=== PATIENT | female | born 1940 | race Caucasian/White ===

== ENCOUNTER 2021-09-23 21:09 | Inpatient (IN) ==
[2021-09-23] MEDS ORDERED: LABETALOL HCL IV 5 MG/ML 20ML IV STA ×2 (21:25→22:01)
[2021-09-23] MEDS ORDERED: OPTIRAY 320 125ml IV ONE (21:28)
[2021-09-23 21:30] LABS: Basophils # (auto) 0.04 K/uL (0-0.2); Basophils % (auto) 0.4 %; Eosinophils # (auto) 0.21 K/uL (0-0.5); Eosinophils % (auto) 2.2 %; Hematocrit (blood only) 43.8 % (37-47); Hemoglobin 14.5 g/dL (12.0-16.0); Immature Granulocytes # (auto) 0.02 K/uL (0.00-0.02); Immature Granulocytes % (auto) 0.2 %; Lymphocytes # (auto) 1.66 K/uL (1.2-3.4); Lymphocytes % (auto) 17.6 %; Mean Corpuscular Hemoglobin 29.5 pg (25-34); Mean Corpuscular Hgb Conc 33.1 g/dL (32-36); Mean Platelet Volume 11.8 fL (7.4-10.4); Monocytes # (auto) 0.94 K/uL (0.11-0.59); Neutrophils # (auto) 6.54 K/uL (1.4-6.5); Neutrophils % (auto) 69.6 %; Platelet Count 201 K/uL (130-400); RDW Coefficient of Variation 14.8 % (11.5-14.5); RDW Standard Deviation 47.9 fL (36.4-46.3); Red Blood Count 4.92 M/uL (4.2-5.4); White Blood Count 9.41 K/uL (4.8-10.8)
--- NOTE | 2021-09-23 21:36 | Emergency Department Note ---
Impression & Plan Cerebrovascular accident ED Provider Note NAME: DARLENE VANG AGE: 80 SEX: F : 1940 ARRIVES VIA: Ambulance INFORMANT: Patient, patient's brother, EMS ED PROVIDER(S): Kamran Juárez DO CHIEF COMPLAINT: Aphasia HPI: The patient is a 80-year-old female who presented to the emergency department by ambulance with her brother for an evaluation of strokelike symptoms. The patient was playing bingo with some other friends around her who noted she was not acting appropriately. The patient noted that she did not feel well. The patient started having aphasia and sounded different from her baseline. 911 was called and the patient was sent to the emergency department via ALS. The patient did have a history of a stroke 6 months ago. After this she did have a carotid endarterectomy. She does take Plavix. She states she syed s been compliant with her usual outpatient medications. She denies having any headache nausea or vomiting. Her brother states it her speech is improved compared to the onset of symptoms. She does not remember receiving thrombolytics after her stroke 6 months ago which occurred in [place]. The pa cindy states that she has had no recent trauma. ROS: See above HPI for pertinent positives & negatives. A total of 10 systems reviewed and were otherwise negative. PAST MEDICAL HISTORY: See Below PAST SURGICAL HISTORY: See Below FAMILY HISTORY: See Below SOCIAL HISTORY: See Below HOME MEDICATIONS: See Below ALLERGIES: See Below VITALS: See Below PHYSICAL EXAMINATION: GENERAL: The patient is awake and alert. She is somewhat anxious appearing. EYES: The conjunctivae are clear. The pupils are round and reactive. EARS, NOSE, MOUTH AND THROAT: The nose is without any evidence of any deformity. NECK: The neck is nontender and supple. RESPIRATORY: Normal respiratory effort is noted there is no evidence of wheezing rhonchi or rales CARDIOVASCULAR: Regular rate and rhythm noted there no murmurs rubs or gallops normal S1 normal S2. GASTROINTESTINAL: The abdomen is soft. Abdomen is nontender. MUSCULOSKELETAL/EXTREMITIES: There is no evidence of gross deformity full range of motion is noted in the hips and shoulders. SKIN: There is no obvious evidence of any rash. There are no petechiae, pallor or cyanosis noted. NEUROLOGIC: Patient is awake alert and oriented x3. [employer] Operator strength is symmetric. The patient is able to hold each leg off the bed for greater than 5 seconds. Her speech is pressured. She inserts inappropriate words at times. There is a slight facial droop affecting the left corner of the mouth. There is no forehead involvement. MEDICAL DECISION MAKING: The patient is a 80-year-old female who presented to the emergency department as a stroke alert. The patient had significant aphasia and a slight facial droop. She did have a stroke 6 months ago when she lived in [place]. She has been avelino ing Plavix. She has a history of a left-sided endarterectomy. The patient slowly improved while she was in the emergency department. She was made a stroke alert and I discussed her case with the telestroke neurologist at [facility]. Given the patient's improving symptoms as well as her findings on CAT scan she did not appear to be a good candidate for TPA or other thrombolytics at this time. I discussed this with the patient and her brother and both agree that they would not want TPA or any other thrombolytic at this time even her rapidly improving symptoms. I discussed her case with the on-call [facility] hospitalist. They have agreed to evaluate the patient in the emergen cy department for further management and disposition. The patient was treated with labetalol in the emergency department because of elevated blood pressure in anticipation that she may need thrombolytics. Triage Nursing notes reviewed. Prior medical records reviewed Vital Signs: reviewed and remarkable for elevated blood pressure. Differential diagnosis: Infection, dehydration, metabolic abnormality, hypo/hyperglycemia, electrolyte disturbance, anemia, hypoxia, cardiac sources, intracerebral event, toxicologic, neurologic, as well as other pathologies. ER treatment provided: See below Diagnostics interpreted by me: ECG: EKG was obtained in the emergency department. My interpretation is sinus rhythm at 84 bpm. There is no ectopy. There is no acute ST segment abnormal ities noted. Nonspecific T wave inversions were noted in the inferior leads. No previous tracing was available. Cardiac Monitoring: An order was placed for continuous cardiac monitoring. The monitor shows a rate of 87 bpm with sinus rhythm. Laboratory studies: As stated above and show below. Imaging studies: See below Consultation(s): I discussed this patient's case with Dr. Parmar who is on-call for telestroke with [facility]. I discussed the patient's condition after the radiographic studies were reviewed by the telestroke neurologist. He does recommend the patient have an inpatient work-up for this new episode other symptoms appear to be mostly resolved and she does not appear to candidate for thrombolytics. He does recommend an EEG be obtained given the patient's description of her symptoms. I discussed the patient's condition with Dr. Stroud is on-call for the [facility] hospitalist group. He will evaluate the patient in the emergency department. ED COURSE: Procedures: none Critical Care: I have personally spent greater than 45 minutes of critical care time in the direct management of this patient. This includes bedside care, interpretation of diagnostic studies, and testing, discussion with consultants, patient, and family members, and other required patient management activities. This 45 minutes is in excess of all separately billable procedures. Past Med/Surg History Medical History CVA (cerebral vascular accident) Diabetes Hyperlipidemia Surgical History History of appendectomy History of cholecystectomy History of left-sided carotid endarterectomy History of right shoulder replacement Social History Smoking Status: Never smoker Preferred Language: American Feels Safe at Home: Yes Results & Data (ED) Vital Signs Vital Signs - 24 hr 09/23/21 21:20 09/23/21 21:25 09/23/21 21:30 Pulse Rate 87 85 88 Pulse Rate from SpO2 Sensor 84 Respiratory Rate 30 H 24 12 Respiratory Effort / Characteristics Non-Labored Respiratory Depth Normal Respiratory Pattern Tachypnea Blood Pressure 199/103 H Blood Pressure Mean 135 Blood Pressure Position Lying Pulse Oximetry 94 95 100 Oxygen Delivery Method Room Air Sepsis Recent Fever Within 48 Hours No Sepsis New/Unexplained Change in Mental Status N/A Sepsis Action Taken by Nursing No Action Required 09/23/21 21:32 09/23/21 21:35 09/23/21 21:40 Pulse Rate 86 87 88 Pulse Rate from SpO2 Sensor Respiratory Rate 20 20 20 Respiratory Effort / Characteristics Respiratory Depth Respiratory Pattern Blood Pressure 169/81 H 165/72 H 161/133 H Blood Pressure Mean 110 103 142 Blood Pressure Position Pulse Oximetry 100 94 Oxygen Delivery Method Sepsis Recent Fever Within 48 Hours Sepsis New/Unexplained Change in Mental Status Sepsis Action Taken by Nursing 09/23/21 21:45 09/23/21 21:46 09/23/21 21:48 Pulse Rate 87 Pulse Rate from SpO2 Sensor Respiratory Rate Respiratory Effort / Characteristics Respiratory Depth Respiratory Pattern Blood Pressure 168/64 H Blood Pressure Mean 98 Blood Pressure Position Pulse Oximetry Oxygen Delivery Method Room Air Sepsis Recent Fever Within 48 Hours Sepsis New/Unexplained Change in Mental Status Sepsis Action Taken by Nursing 09/23/21 21:49 09/23/21 21:50 09/23/21 21:51 Pulse Rate 92 H 97 H 92 H Pulse Rate from SpO2 Sensor 93 H 93 H Respiratory Rate 26 H 28 H 18 Respiratory Effort / Characteristics Respiratory Depth Respiratory Pattern Blood Pressure 178/129 H Blood Pressure Mean 145 Blood Pressure Position Pulse Oximetry 88 L 100 100 Oxygen Delivery Method Sepsis Recent Fever Within 48 Hours Sepsis New/Unexplained Change in Mental Status Sepsis Action Taken by Nursing 09/23/21 21:57 09/23/21 22:00 09/23/21 22:01 Pulse Rate 90 93 H 90 Pulse Rate from SpO2 Sensor Respiratory Rate 26 H 16 23 Respiratory Effort / Characteristics Respiratory Depth Respiratory Pattern Blood Pressure 191/75 H 169/81 H Blood Pressure Mean 113 110 Blood Pressure Position Pulse Oximetry 98 100 100 Oxygen Delivery Method Sepsis Recent Fever Within 48 Hours Sepsis New/Unexplained Change in Mental Status Sepsis Action Taken by Nursing 09/23/21 22:05 Pulse Rate 90 Pulse Rate from SpO2 Sensor Respiratory Rate 22 Respiratory Effort / Characteristics Respiratory Depth Respiratory Pattern Blood Pressure 189/61 H Blood Pressure Mean 103 Blood Pressure Position Pulse Oximetry 100 Oxygen Delivery Method Sepsis Recent Fever Within 48 Hours Sepsis New/Unexplained Change in Mental Status Sepsis Action Taken by Longterm Medications Current Medication List: was personally reviewed by me Laboratory Data Attestation: I reviewed the patient's lab results. Result diagrams: 09/23/21 21:20 09/23/21 21:20 Lab Results 09/23/21 09/23/21 09/23/21 Range/Units 21:20 21:20 21:20 WBC 9.41 (4.8-10.8) K/uL RBC 4.92 (4.2-5.4) M/uL Hgb 14.5 (12.0-16.0) g/dL Hct 43.8 (37-47) % MCV 89.0 (80-100) fL MCH 29.5 (25-34) pg MCHC 33.1 (32-36) g/dL RDW Std Deviation 47.9 H (36.4-46.3) fL RDW Coeff of [place] 14.8 H (11.5-14.5) % Plt Count 201 (130-400) K/uL MPV 11.8 H (7.4-10.4) fL Immature Gran % (Auto) 0.2 % Neut % (Auto) 69.6 % Lymph % (Auto) 17.6 % [place] % (Auto) 10.0 % Eos % (Auto) 2.2 % Baso % (Auto) 0.4 % Neut # (Auto) 6.54 H (1.4-6.5) K/uL Lymph # (Auto) 1.66 (1.2-3.4) K/uL [place] # (Auto) 0.94 H (0.11-0.59) K/uL Eos # (Auto) 0.21 (0-0.5) K/uL Baso # (Auto) 0.04 (0-0.2) K/uL Immature Gran # (Auto) 0.02 (0.00-0.02) K/uL PT Cancelled INR Cancelled APTT Cancelled PTT Ratio Cancelled Sodium 138 (136-145) mmol/L Potassium 4.1 (3.5-5.1) mmol/L Chloride 103 (98-107) mmol/L Carbon Dioxide 28 (21-32) mmol/L Anion Gap 7 (3-11) BUN 26 H (6-23) mg/dl Creatinine 1.09 (0.6-1.2) mg/dl Est Cr Clr Drug Dosing 45.1 ml/min Est GFR ( Amer) 55.9 ml/min Est GFR (Non-Af Amer) 48.2 ml/min BUN/Creatinine Ratio 23.9 H (10-20) Glucose 146 H (70-99(Fasting)) mg/dl POC Glucose (70-99) mg/dl Calcium 9.8 (8.5-10.1) mg/dl Magnesium 1.7 (1.7-2.4) mg/dl Total Bilirubin 0.7 (0.2-1.0) mg/dl AST 23 (13-39) U/L ALT 24 (7-52) U/L Alkaline Phosphatase 64 (34-104) U/L Troponin I < 0.03 (0-0.04) ng/ml Total Protein 7.2 (6.0-8.3) gm/dl Albumin 4.1 (3.4-5.0) gm/dl Globulin 3.1 (2.5-4.0) gm/dl Albumin/Globulin Ratio 1.3 (0.9-2) SARS-CoV-2, RNA, NAAT (NEGATIVE) 09/23/21 09/23/21 09/23/21 Range/Units 21:22 21:30 21:45 WBC (4.8-10.8) K/uL RBC (4.2-5.4) M/uL Hgb (12.0-16.0) g/dL Hct (37-47) % MCV (80-100) fL MCH (25-34) pg MCHC (32-36) g/dL RDW Std Deviation (36.4-46.3) fL RDW Coeff of [place] (11.5-14.5) % Plt Count (130-400) K/uL MPV (7.4-10.4) fL Immature Gran % (Auto) % Neut % (Auto) % Lymph % (Auto) % [place] % (Auto) % Eos % (Auto) % Baso % (Auto) % Neut # (Auto) (1.4-6.5) K/uL Lymph # (Auto) (1.2-3.4) K/uL [place] # (Auto) (0.11-0.59) K/uL Eos # (Auto) (0-0.5) K/uL Baso # (Auto) (0-0.2) K/uL Immature Gran # (Auto) (0.00-0.02) K/uL PT 11.2 INR 1.1 APTT 27.3 PTT Ratio 1.0 Sodium (136-145) mmol/L Potassium (3.5-5.1) mmol/L Chloride (98-107) mmol/L Carbon Dioxide (21-32) mmol/L Anion Gap (3-11) BUN (6-23) mg/dl Creatinine (0.6-1.2) mg/dl Est Cr Clr Drug Dosing ml/min Est GFR ( Amer) ml/min Est GFR (Non-Af Amer) ml/min BUN/Creatinine Ratio (10-20) Glucose (70-99(Fasting)) mg/dl POC Glucose 153 H (70-99) mg/dl Calcium (8.5-10.1) mg/dl Magnesium (1.7-2.4) mg/dl Total Bilirubin (0.2-1.0) mg/dl AST (13-39) U/L ALT (7-52) U/L Alkaline Phosphatase (34-104) U/L Troponin I (0-0.04) ng/ml Total Protein (6.0-8.3) gm/dl Albumin (3.4-5.0) gm/dl Globulin (2.5-4.0) gm/dl Albumin/Globulin Ratio (0.9-2) SARS-CoV-2, RNA, NAAT NEGATIVE (NEGATIVE) Administered Medications Discontinued Medications Ioversol (Optiray 320 125ml) 120 ml IV ONCE ONE Stop: 09/23/21 21:29 Last Admin: 09/23/21 21:29 Dose: 120 ml Documented by: [id number] Labetalol HCl (Labetalol Hcl Iv 5 Mg/Ml 20ml) 10 mg IV NOW STA Stop: 09/23/21 21:26 Last Admin: 09/23/21 21:30 Dose: 10 mg Documented by: [id number] Cosigned by: [id number] Labetalol HCl (Labetalol Hcl Iv 5 Mg/Ml 20ml) 10 mg IV NOW STA Stop: 09/23/21 22:02 Last Admin: 09/23/21 22:03 Dose: 10 mg Documented by: [id number] Cosigned by: [id number] Imaging Data Attestation: I personally reviewed and interpreted this imaging study as follows: My Impression: 1 view chest x-ray was obtained in the emergency department. My interpretation is cardiomegaly with slight pulmonary vascular congestion. No acute disease was noted. There was no free air. Radiologist's Impression: Patient: DARLENE VANG (Female) : 42 Status: ER Date: 09/23/21 21:36 Room #: History: CODE STROKE; PT. SUDDEN CONFUSION AND SLURRED SPEECH OPTI 320 CC SCAN - DG NOTES - Slices: 568 Priors: Tech: KishoreCecin @ [phone] Exams: CTA HEAD Contrast: IV Amt: OPTI 320 120 CC Accession Numbers: [id number] Referring Physician: REFERRED SELF Preliminary Findings Only See Final Report For Complete Findings CTA HEAD: There are regions of parenchymal hypoattenuation and loss of su-white matter differentiation in the bilateral parieto-occipital regions, left larger than right, concerning for recent cortical infarcts. Differential consideration includes acute hypertensive encephalopathy. Intracranial circulation appears patent. No central large vessel occlusion identified. No aneurysm. Radiologist: Marylou Braun M.D. Study ready at 21:38 and initial results transmitted at 21:52 Communications: Clear Time Type Notes Call Doctor Stroke Patient: DARLENE VANG (Female) : 42 Status: ER Date: 09/23/21 21:37 Room #: History: CODE STROKE; PT. SUDDEN CONFUSION AND SLURRED SPEECH OPTI 320 CC SCAN - DG NOTES - Slices: [phone] Priors: Tech: Jacqueline Novak @ [phone] Exams: CTA NECK Contrast: IV Amt: OPTI 320 120 CC Accession Numbers: [id number] Referring Physician: REFERRED SELF Preliminary Findings Only See Final Report For Complete Findings CTA NECK: Calcific plaque proximal right ICA without stenosis. Left ICA adequately patent. Both common carotid arteries are adequately patent. Both vertebral arteries adequately patent. Slightly sub-optimal evaluation of right vertebral artery origin. Radiologist: Marylou Braun M.D. Study ready at 21:48 and initial results transmitted at 21:51 Patient: DARLENE VANG (Female) : 42 Status: ER Date: 09/23/21 21:49 Room #: History: CODE STROKE; PT. SUDDEN CONFUSION AND SLURRED SPEECH SCAN - NOTES - Slices: 134 Priors: Tech: Jacqueline Novak @ [phone] Exams: CT HEAD Contrast: Accession Numbers: [id number] Referring Physician: REFERRED SELF Preliminary Findings Only See Final Report For Complete Findings CT HEAD: Subacute to chronic cortical infarct in the left parieto-occipital region. Su-white matter differentiation appears otherwise maintained. No CT evidence of acute territorial infarct. No acute intracranial hemorrhage. Involutional and chronic small vessel ischemic changes. No skull fracture. Age-indeterminate bilateral nasal bone fractures. Sinuses and mastoid air cells are clear. Radiologist: Marylou Braun M.D. Study ready at 21:49 and initial results transmitted at 21:57 Communications: Clear Time Type Notes Call Doctor Stroke Discharge Plan Visit Data Chief Complaint: Stroke Alert ED Provider: Kamran Juárez Discharge Problem: Cerebrovascular accident Patient Disposition: Being Evaluated by Hospitalist Forms Stand Alone Forms: [facility] Referrals Referrals: Twila Renteria MD [Primary Care Provider] -
[2021-09-23 21:48] LABS: INR 1.1 (0.9-1.1); Partial Thromboplastin Time 27.3 Seconds (21.0-31.0); Prothrombin Time 11.2 Seconds (9.0-12.0)
[2021-09-23 21:51] LABS: Alanine Aminotransferase 24 U/L (7-52); Albumin Globulin Ratio 1.3 (0.9-2); Albumin Level 4.1 gm/dl (3.4-5.0); Alkaline Phosphatase 64 U/L (34-104); Anion Gap 7 (3-11); Aspartate Aminotransferase 23 U/L (13-39); BUN Creatinine Ratio 23.9 (10-20); Bilirubin,Total 0.7 mg/dl (0.2-1.0); Blood Urea Nitrogen 26 mg/dl (6-23); Calcium 9.8 mg/dl (8.5-10.1); Carbon Dioxide 28 mmol/L (21-32); Chloride 103 mmol/L (98-107); Creatinine Clr Calc Pharmacy 45.1 ml/min; Est GFR (African American) 55.9 ml/min; Est GFR (Non-African American) 48.2 ml/min; Globulin 3.1 gm/dl (2.5-4.0); Glucose 146 mg/dl (70-99(Fasting)); Magnesium 1.7 mg/dl (1.7-2.4); Potassium 4.1 mmol/L (3.5-5.1); Sodium 138 mmol/L (136-145); Total Protein 7.2 gm/dl (6.0-8.3)
[2021-09-23 22:19] LABS: Troponin I < 0.03 ng/ml (0-0.04)
--- NOTE | 2021-09-23 23:36 | History & Physical Report ---
Date of Service September 23, 2021 Assessment & Plan (1) Cerebrovascular accident: Plan: Recurrent CVA Possible embolic mechanism given history of PAF, patient currently NSR TPA not administered at the ER secondary to improving neurologic symptoms as per [facility] stroke specialist. PVD status post surgery hypertension, elevated secondary to CVA hyperlipidemia on statin Rx DM insulin requiring, well-controlled as of recent hemoglobin A1c of 6.17 August 2021 Medical telemetry Neurochecks Continue antiplatelet and statin Rx for secondary stroke prevention. Patient may need anticoagulation if recurrent A. fib noted during confinement. MRI brain, TTE for stroke work-up Neurology consult Re: Recurrent CVA Permissive hypertension for first 24 hours of event Update lipid profile Basal insulin, ISS BG goal 1 10-1 40, carb count coverage once patient eating PT OT eval DVT prophylaxis per Lovenox subcu Full code Patient requests for her niece to be updated of progress and plan of care Ms. Mariposa Jean, contact #[phone]. Text document was generated using [employer] voice recognition software. It may contain grammatical or spelling errors. Kindly contact undersigned for clarification of any documentation item in question. History of Present Illness Chief Complaint: Stroke Primary Care Provider: Twila Renteria MD History obtained from patient and records. History somewhat limited by patient's aphasia. Medical history significant for CVA, PVD status post surgery, hypertension, PAF, hyperlipidemia, DM insulin requiring. Patient confined at [facility] in [place], [place] January 2021 for altered mental status and aphasia. MRI brain showed acute infarction involving left parietal lobe with regions of petechial hemorrhage and moderate atrophy with chronic microvascular ischemic changes. 50 to 69% stenosis noted on proximal left ICA. Elective left carotid endarterectomy recommended by vascular surgery. Paroxysmal A. fib noted during confinement. Thromboembolic ischemic event highly suspected as per documentation. Patient discharged on dual antiplatelet therapy and Lipitor. Patient eventually underwent left carotid endarterectomy at [facility] February 2021. Patient was playing bingo with her friends few hours ago when she started not feeling well. Patient noted to be aphasic and sounding differently by family. Patient denies headache or weakness symptoms Compliant with home medications. Stroke alert called upon arrival at the ER. TPA not recommended with note of improving symptoms as per conversation between ER provider and [facility] stroke specialist. SBP noted to be 190s at the highest at the ER. IV labetalol administered at the ER. 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 Allergies Allergy/AdvReac Type Severity Reaction Status Date / Time No Known Allergies Allergy Unverified 09/23/21 22:41 Home Medications Medication Instructions Recorded Confirmed Type aspirin 81 mg tablet,delayed 81 mg PO DAILY 09/23/21 09/23/21 History release (Aspirin Low Dose) atorvastatin 80 mg tablet 80 mg PO DAILY 09/23/21 09/23/21 History cholecalciferol (vitamin D3) 25 25 mcg PO DAILY 09/23/21 09/23/21 History mcg (1,000 unit) tablet (Vitamin D3) clopidogrel 75 mg tablet 75 mg PO DAILY 09/23/21 09/23/21 History dulaglutide 0.75 mg/0.5 mL 0.75 mg SUBCUT WK 09/23/21 09/23/21 History subcutaneous pen injector (Trulicity) insulin aspart U-100 100 unit/mL 0 unit SUBCUT UD 09/23/21 09/23/21 History (3 mL) subcutaneous pen (Novolog Flexpen U-100 Insulin aspart) losartan 50 mg tablet 50 mg PO DAILY 09/23/21 09/23/21 History metformin 500 mg tablet,extended 500 mg PO DAILY 09/23/21 09/23/21 History release 24 hr metoprolol tartrate 50 mg tablet 50 mg PO BID 09/23/21 09/23/21 History Past Med/Surg History Medical History CVA (cerebral vascular accident) Diabetes Hyperlipidemia Surgical History History of appendectomy History of cholecystectomy History of left-sided carotid endarterectomy History of right shoulder replacement Social History Smoking Status: Never smoker Hx Alcohol Use: No Hx Substance Use: No Preferred Language: Azeri Communication Ability: Impaired Wet Mix Operator Required: No Beliefs That Will Affect Care: Alevism Current Living Situation: Alone Current Living Situation Comment: own Home Feels Safe at Home: Yes Safety Concerns: Feels Safe At This Time Assistive Devices: Denture - Upper and Glasses Review of Systems Review of Systems: Somewhat limited due to aphasia Physical Exam Physical Exam: GENERAL: Comfortable, pleasant, obese, aphasic, dysarthric, no respiratory distress SKIN: Normal color, warm HEENT: [place] palpebral conjunctivae, no ptosis, dry buccal mucosa NECK : Supple, short neck, no tenderness CHEST : CTA, no tenderness HEART : RRR, no obvious murmurs ABDOMEN: Some distention, nontender EXTREMITIES : No LE swelling/tenderness, no other conspicuous deformities noted NEUROLOGIC : Coherent, no facial asymmetry, aphasic, dysarthric, gait and stance not assessed Results & Data Results & Data ([facility]) Vital Signs (Past 12 Hours) Vital Signs Pulse Resp BP Pulse Ox 09/23/21 22:40 85 17 98 09/23/21 22:33 86 18 151/79 H 99 09/23/21 22:30 87 31 H 100 09/23/21 22:25 87 26 H 160/102 H 09/23/21 22:20 87 18 161/73 H 98 09/23/21 22:15 91 H 21 179/78 H 97 09/23/21 22:11 90 17 165/89 H 99 09/23/21 22:10 91 H 23 98 09/23/21 22:05 90 22 189/61 H 100 09/23/21 22:01 90 23 169/81 H 100 09/23/21 22:00 93 H 16 100 09/23/21 21:57 90 26 H 191/75 H 98 09/23/21 21:51 92 H 18 178/129 H 100 09/23/21 21:50 97 H 28 H 100 09/23/21 21:49 92 H 26 H 88 L 09/23/21 21:46 168/64 H 09/23/21 21:45 87 09/23/21 21:40 88 20 161/133 H 09/23/21 21:35 87 20 165/72 H 94 09/23/21 21:32 86 20 169/81 H 100 09/23/21 21:30 88 12 100 09/23/21 21:25 85 24 95 09/23/21 21:20 87 30 H 199/103 H 94 Laboratory Results Laboratory Results WBC 9.41 K/uL (4.8-10.8) 09/23/21 21:20 RBC 4.92 M/uL (4.2-5.4) 09/23/21 21:20 Hgb 14.5 g/dL (12.0-16.0) 09/23/21 21:20 Hct 43.8 % (37-47) 09/23/21 21:20 MCV 89.0 fL (80-100) 09/23/21 21:20 MCH 29.5 pg (25-34) 09/23/21 21: MCHC 33.1 g/dL (32-36) 09/23/21 21:20 RDW Std Deviation 47.9 fL (36.4-46.3) H 09/23/21: RDW Coeff of [place] 14.8 % (11.5-14.5) H 09/23/21 21: Plt Count 201 K/uL (130-400) 09/23/21 21:20 MPV 11.8 fL (7.4-10.4) H 09/23/21 21:20 Immature Gran % (Auto) 0.2 % 09/23/21 21:20 Neut % (Auto) 69.6 % 09/23/21 21:20 Lymph % (Auto) 17.6 % 09/23/21 21:20 [place] % (Auto) 10.0 % 09/23/21 21:20 Eos % (Auto) 2.2 % 09/23/21 21:20 Baso % (Auto) 0.4 % 09/23/21 21:20 Neut # (Auto) 6.54 K/uL (1.4-6.5) H 09/23/21 21:20 Lymph # (Auto) 1.66 K/uL (1.2-3.4) 09/23/21 21:20 [place] # (Auto) 0.94 K/uL (0.11-0.59) H 09/23/21 21:20 Eos # (Auto) 0.21 K/uL (0-0.5) 09/23/21 21:20 Baso # (Auto) 0.04 K/uL (0-0.2) 09/23/21 21:20 Immature Gran # (Auto) 0.02 K/uL (0.00-0.02) 09/23/21 21:20 PT 11.2 Seconds (9.0-12.0) 09/23/21 21:30 INR 1.1 (0.9-1.1) 09/23/21 21:30 APTT 27.3 Seconds (21.0-31.0) 09/23/21 21:30 PTT Ratio 1.0 09/23/21 21:30 Sodium 138 mmol/L (136-145) 09/23/21 21:20 Potassium 4.1 mmol/L (3.5-5.1) 09/23/21 21:20 Chloride 103 mmol/L (98-107) 09/23/21 21:20 Carbon Dioxide 28 mmol/L (21-32) 09/23/21 21:20 Anion Gap 7 (3-11) 09/23/21 21:20 BUN 26 mg/dl (6-23) H 09/23/21 21:20 Creatinine 1.09 mg/dl (0.6-1.2) 09/23/21 21:20 Est Cr Clr Drug Dosing 45.1 ml/min 09/23/21 21:20 Est GFR ( Amer) 55.9 ml/min 09/23/21 21:20 Est GFR (Non-Af Amer) 48.2 ml/min 09/23/21 21:20 BUN/Creatinine Ratio 23.9 (10-20) H 09/23/21 21:20 Glucose 146 mg/dl (70-99(Fasting)) H 09/23/21 21:20 POC Glucose 153 mg/dl (70-99) H 09/23/21:22 Calcium 9.8 mg/dl (8.5-10.1) 09/23/21 21: Magnesium 1.7 mg/dl (1.7-2.4) 09/23/21 21:20 Total Bilirubin 0.7 mg/dl (0.2-1.0) 09/23/21 21:20 AST 23 U/L (13-39) 09/23/21 21:20 ALT 24 U/L (7-52) 09/23/21 21:20 Alkaline Phosphatase 64 U/L (34-104) 09/23/21 21:20 Troponin I < 0.03 ng/ml (0-0.04) 09/23/21 21:20 Total Protein 7.2 gm/dl (6.0-8.3) 09/23/21 21:20 Albumin 4.1 gm/dl (3.4-5.0) 09/23/21 21:20 Globulin 3.1 gm/dl (2.5-4.0) 09/23/21 21:20 Albumin/Globulin Ratio 1.3 (0.9-2) 09/23/21 21:20 SARS-CoV-2, RNA, NAAT NEGATIVE (NEGATIVE) 09/23/21 21:[address] head initial read: Subacute to chronic cortical infarct in the left parieto-occipital region. Su- white matter differentiation appears otherwise maintained. No CT evidence of acute territorial infarct. No acute intracranial hemorrhage. Involutional and chronic small vessel ischemic changes. No skull fracture. Age-indeterminate bilateral nasal bone fractures. Sinuses and mastoid air cells are clear CT angio head initial read: There are regions of parenchymal hypoattenuation and loss of su-white matter differentiation in the bilateral parieto-occipital regions, left larger than right, concerning for recent cortical infarcts. Differential consideration includes acute hypertensive encephalopathy. Intracranial circulation appears patent. No central large vessel occlusion identified. No aneurysm. CT angio neck initial read: Calcific plaque proximal right ICAwithout stenosis. Left ICAadequatelypatent. Both common carotid arteries are adequatelypatent. Both vertebral arteries adequatelypatent. Slightlysub-optimal evaluation of right vertebral artery origin. Chest x-ray as per my interpretation cardiomegaly EKG as per my interpretation : Rate 85, NSR, normal axis, 1 AVB, T wave abnormalities inferior and anterolateral leads (1) Cerebrovascular accident CVA mechanism: unspecified Qualified Code(s): I63.9 - Cerebral infarction, unspecified
[2021-09-24] MEDS: SODIUM CHLORIDE 0.9% 1000ML 1,000 ML IV SCH (00:10)
[2021-09-24] MEDS ORDERED: GLUCAGON FOR INJ 1 MG VIAL SQ PRN (01:04)
[2021-09-24] MEDS ORDERED: PHARMACIST DISCHARGE MED REC CONSULT PRN (01:04)
[2021-09-24] MEDS ORDERED: ACETAMINOPHEN 325 MG TAB PO PRN (01:04)
[2021-09-24] MEDS ORDERED: DEXTROSE 50% 50 ML SYRINGE IV PRN (01:04)
[2021-09-24] MEDS ORDERED: CARBOHYDRATES FOR HYPOGLYCEMIA PO PRN (01:04)
[2021-09-24] MEDS ORDERED: GLUCOSE 40% GEL 15 GM TUBE PO PRN (01:04)
[2021-09-24] MEDS ORDERED: GLUCOSE 10 TABS/TUBE PO PRN (01:04)
[2021-09-24] MEDS: INSULIN ASPART PER UNIT SC SCH ×5 (02:54→20:55)
[2021-09-24] MEDS ORDERED: LORazepam 2 MG/1 ML VIAL IV PRN (06:54)
--- NOTE | 2021-09-24 07:13 | CT Scan Report ---
CT head/brain wo con CLINICAL HISTORY: Stroke Like Symptoms . Sudden onset of confusion and slurred speech COMPARISON STUDY: No previous studies for comparison. CT DOSE: 1190.88 mGy.cm TECHNIQUE: Standard CT of the Brain was performed without IV contrast. A dose lowering technique was utilized adhering to the principles of ALARA. FINDINGS: Extraaxial space: There is no evidence for subdural hematoma. There are no extra-axial fluid collecti ons. Ventricles and cisterns: The ventricles are mildly dilated bilaterally. There is no evidence for midl ine shift or mass effect. Parenchyma: There is no subarachnoid or intraparenchymal hemorrhage. There is no evidence for an acut e infarct or cerebral edema. There is evidence for old left posterior parietal infarct with encephalo malacia present. There is mild cerebral cortical atrophy and decreased attenuation in the periventric ular white matter representing remote small vessel disease. There are no gross mass lesions. Osseous structures: There is no evidence for an acute fracture. The visualized paranasal sinuses are clear. The mastoid air cells are clear bilaterally. Soft tissues: There is no evidence for focal soft tissue swelling. IMPRESSION: 1. No acute intracerebral pathology. 2. Evidence for old left posterior parietal infarct with encephalomalacia. 3. Cerebral cortical atrophy and remote small vessel disease. ACT 112: Negative or not required by law. Electronically signed by: Chris Villavicencio M.D. 09/24/2021 7:12 AM
--- NOTE | 2021-09-24 07:30 | CT Scan Report ---
CT angio head w con CLINICAL HISTORY: Stroke Like Symptoms . Sudden onset of confusion and slurred speech COMPARISON STUDY: CT brain from 09/23/2021. CT DOSE: TECHNIQUE: CT Angio of the brain was performed.followed by image post processing with coronal, and s agittal MIP reformats. Contrast Volume: Optiray 320, 120 ml FINDINGS: Vascular findings: There is normal enhancement within the internal carotid arteries bilaterally. Ther e is mild atherosclerotic calcification of the intracranial portions of the internal carotid arteries bilaterally. There is normal enhancement noted within the anterior, middle and posterior cerebral ar teries. However, there is atherosclerotic narrowing of the right A1 and A2 segments of the anterior cerebral artery. There is no evidence for stenosis. Nonvascular findings: There is again decreased attenuation within the posterior left parietal lobe ch aracteristic of an old infarct. There is no evidence for an acute infarct or cerebral edema. IMPRESSION: 1. No evidence for focal stenosis. 2. Atherosclerotic calcification is present. 3. Old left posterior parietal infarct is again seen. ACT 112: Negative or not required by law. Electronically signed by: Chris Villavicencio M.D. 09/24/2021 7:29 AM
--- NOTE | 2021-09-24 07:34 | CT Scan Report ---
CT angio neck with con CLINICAL HISTORY: Stroke Like Symptoms . Sudden onset of confusion and slurred speech COMPARISON STUDY: No previous studies for comparison. CT DOSE: TECHNIQUE: CT Angio of the neck was performed.followed by image post processing with coronal, and sa gittal MIP reformats.. Stenosis assessment by NASCET criteria. Contrast Volume: Optiray 320, 120 ml FINDINGS: Vascular findings: Right common carotid artery: Patent without significant stenosis. There is mild atherosclerotic calci fication at the carotid bulb. Right internal carotid artery: Patent without significant stenosis. Right vertebral artery: Patent without significant stenosis. Left common carotid artery: Patent without significant stenosis. Left internal carotid artery: Patent without significant stenosis. Left vertebral artery: Patent without significant stenosis. Nonvascular findings: The parotid and submandibular salivary glands appear normal. There is no enlarged cervical adenopathy noted. The airway appears patent. The thyroid gland appears within normal limits. The lung apices ap pear within normal limits. Impression: Essentially negative CT angiogram of the neck with contrast. ACT 112: Negative or not required by law. Electronically signed by: Chris Villavicencio M.D. 09/24/2021 7:32 AM
[2021-09-24 07:54] LABS: Basophils # (auto) 0.03 K/uL (0-0.2); Basophils % (auto) 0.3 %; Eosinophils # (auto) 0.14 K/uL (0-0.5); Eosinophils % (auto) 1.6 %; Hematocrit (blood only) 38.4 % (37-47); Hemoglobin 12.8 g/dL (12.0-16.0); Immature Granulocytes # (auto) 0.01 K/uL (0.00-0.02); Immature Granulocytes % (auto) 0.1 %; Lymphocytes # (auto) 1.38 K/uL (1.2-3.4); Lymphocytes % (auto) 15.8 %; Mean Corpuscular Hemoglobin 29.2 pg (25-34); Mean Corpuscular Hgb Conc 33.3 g/dL (32-36); Mean Corpuscular Volume 87.7 fL (80-100); Mean Platelet Volume 11.8 fL (7.4-10.4); Monocytes % (auto) 11.5 %; Neutrophils # (auto) 6.16 K/uL (1.4-6.5); Neutrophils % (auto) 70.7 %; Platelet Count 183 K/uL (130-400); RDW Coefficient of Variation 14.8 % (11.5-14.5); RDW Standard Deviation 47.7 fL (36.4-46.3); Red Blood Count 4.38 M/uL (4.2-5.4); White Blood Count 8.72 K/uL (4.8-10.8)
[2021-09-24 08:02] LABS: BUN Creatinine Ratio 23.8 (10-20); Calcium 8.3 mg/dl (8.5-10.1); Chol HDL Ratio 2.6 (0-5); Est GFR (African American) 61.3 ml/min; Est GFR (Non-African American) 52.9 ml/min; Potassium 4.1 mmol/L (3.5-5.1)
--- NOTE | 2021-09-24 08:04 | XRay Report ---
XR chest 1V portable CLINICAL HISTORY: Stroke Like Symptoms TECHNIQUE: Single frontal radiograph of the chest was obtained. Comparison: None available at the time of this dictation. FINDINGS: No lines and tubes are seen. Cardiomegaly is noted. The lungs are clear. No evidence of pleural effus ion or pneumothorax. Right reverse shoulder arthroplasty is seen. IMPRESSION: No acute chest disease. ACT 112: Negative or not required by law. Electronically signed by: Jairon Banks M.D. 09/24/2021 8:02 AM
[2021-09-24] MEDS: ASPIRIN 81 MG ECTAB PO SCH (08:40)
[2021-09-24] MEDS: ATORVASTATIN 40 MG TAB PO SCH (08:42)
[2021-09-24] MEDS: CLOPIDOGREL BISULFATE 75 MG TAB PO SCH (08:45)
[2021-09-24] MEDS: METOPROLOL TARTRATE 25 MG TAB PO SCH ×2 (08:46→20:55)
[2021-09-24] MEDS: ENOXAPARIN INJ 40 MG/0.4 ML SYR SQ SCH (08:47)
[2021-09-24] MEDS: INSULIN GLARGINE SOLOSTAR 100 UNITS/ML 3 ML PEN SC SCH (09:04)
--- NOTE | 2021-09-24 11:07 | Neurology Consultation ---
Date of Consultation September 24, 2021 Assessment & Plan (1) Cerebrovascular accident: 1. MRI brain - r/o stroke can not tolerate repeat CT head now 2. CTA head and neck - no acute findings 3. TTE - if not already done 4. PT/OT speech for discharge needs 5. continue aspirin 81 mg and plavix 75 mg 6. optimize HTN HLD DM LDL <70 7. UA r/o UTI neurology follow 4-6 weeks and EEG and ZIO as out patient Supervising Physician Co-Signing Physician Notes Patient was seen and examined this afternoon. Niece at bedside. A 80 yo woman with history of PAF not on anticoagulation, left carotid stenosis s/p CEA on ASA and Plavix with prior history of left MCA ischemic stroke with residual aphasia / dysarthria. Admitted wiht episode yesterday of bilateral upper extremity shaking, vision changes, and worsening aphasia / speech difficulty. Symptoms improved. On examine has right finger to nose ataxia, pupils symmetric and reactive, mild to moderate global aphasia with moderate dysarthria. Concern for embolic stroke as discussed with patient and niece at bedside. Recommend repeat CT head non contrast as did not tolerate MRI brain. Low suspicion for seizure. Could consider EEG as outpatient. Discussed ELiquis and Plavix for secondary stroke prevention given history of Afib. Patient and niece which to discuss further. Neurology will continue to follow. INTERVAL UPdate: Repeat CT head reviewed. Right cerbellar evolving stroke. Continue Neuro checks. Continue telemetry. Agree with cardiology consult given prior history of PAF from outside associate team physician. I would lean towards starting Eliquis and stopping ASA. continue PLavix. Will continue to follow. Will arrange repeat CT head in the morning. History of Present Illness Reason for Consultation: CVA Requesting Physician: Leah Hemphill MD Attending Physician: Kanchan Lynn MD History of Present Illness Lyndsey is a 80 year old female who presented to [facility] ED 09/23/21 by ambulance with her brother for an evaluation of strokelike symptoms. She was playing bingo with some other friends around her who noted she was not acting appropriately. She did not feel well and started having aphasia and sounded different from her baseline. 911 was called. She did have a stroke 6 months ago. She had a carotid endarterectomy and now takes Plavix. Her speech improved in the ED She does not remember receiving thrombolytics after her stroke 6 months ago which occurred in [place].She has a PMH- DM, HLD, HTN, left retinal hemorrhage, obesity. She describes a shaking of both hands which lasted seconds which she put her syed nd on her face to stop them. she never lost conscience. She walked back to her apartment and EMS was called. denies CP, SOB, abdominal pain Allergies Allergy/AdvReac Type Severity Reaction Status Date / Time No Known Allergies Allergy Unverified 09/23/21 22:41 Home Medications Medication Instructions Recorded Confirmed Type aspirin 81 mg tablet,delayed 81 mg PO DAILY 09/23/21 09/23/21 History release (Aspirin Low Dose) atorvastatin 80 mg tablet 80 mg PO DAILY 09/23/21 09/23/21 History cholecalciferol (vitamin D3) 25 25 mcg PO DAILY 09/23/21 09/23/21 History mcg (1,000 unit) tablet (Vitamin D3) clopidogrel 75 mg tablet 75 mg PO DAILY 09/23/21 09/23/21 History dulaglutide 0.75 mg/0.5 mL 0.75 mg SUBCUT WK 09/23/21 09/23/21 History subcutaneous pen injector (Trulicity) insulin aspart U-100 100 unit/mL 0 unit SUBCUT UD 09/23/21 09/23/21 History (3 mL) subcutaneous pen (Novolog Flexpen U-100 Insulin aspart) losartan 50 mg tablet 50 mg PO DAILY 09/23/21 09/23/21 History metformin 500 mg tablet,extended 500 mg PO DAILY 09/23/21 09/23/21 History release 24 hr metoprolol tartrate 50 mg tablet 50 mg PO BID 09/23/21 09/23/21 History Patient History Medical History CVA (cerebral vascular accident) Diabetes Hyperlipidemia Surgical History History of appendectomy History of cholecystectomy History of left-sided carotid endarterectomy History of right shoulder replacement Social History Smoking Status: Never smoker Hx Alcohol Use: No Hx Substance Use: No Preferred Language: Sinhala Communication Ability: Impaired Multimedia Teacher Required: No Beliefs That Will Affect Care: Orthodox Current Living Situation: Alone Current Living Situation Comment: own Home Feels Safe at Home: Yes Safety Concerns: Feels Safe At This Time Assistive Devices: Glasses Review of Systems Review of Systems: All systems reviewed & are unremarkable except as noted in HPI & below Physical Exam Physical Exam: Physical Exam: Constitutional: appearance over nourished, healthy Ears, Nose, Mouth and Throat: mucous membranes moist, no injection and skin normal, eyes normal Cardiovascular: normal S-1 and S-2 and regular rate and rhythm Respiratory: clear to auscultation (CTA) and no rales, rhonchi or wheeze Musculoskeletal: no peripheral edema and good distal pulses Skin: no stigmata of neurocutaneous disease noted and normal and intact Eyes: extraocular muscles intact (EOMI) and pupils equal, round and reactive to light (PERRL) NEUROLOGIC EXAMINATION: Mental status: Alert and interactive Oriented to full date and location Oriented to person Speech mild expressive and receptive aphasia Cranial Nerves flattening of left nasolabial fold Reflexes: Deep tendon reflexes were symmetrical and graded 2/5. Sensory: no sensory deficits to light touch Coordination: finger to nose dysmetric on right Gait/Stance: Posture lying in bed Motor: Negative for pronator drift of out stretched arms with eyes closed. Strength: Normal - 5/5 all extremities Results & Data ([facility]) Vital Signs (Past 12 Hours) Vital Signs Temp Pulse Pulse Pulse Pulse Resp BP 09/24/21 08:10 36.6 C 78 18 09/24/21 07:21 36.9 C 76 18 09/24/21 04:33 36.5 C 76 18 09/24/21 01:19 36.6 C 80 18 09/24/21 00:17 81 24 172/82 H 09/24/21 00:10 84 27 H 09/24/21 00:00 86 16 189/96 H 09/23/21 23:50 85 20 09/23/21 23:40 82 17 09/23/21 23:31 87 19 168/74 H 09/23/21 23:30 84 17 09/23/21 23:20 95 H 20 09/23/21 23:15 87 19 138/74 09/23/21 23:10 80 18 BP Pulse Ox 09/24/21 08:10 142/72 H 95 09/24/21 07:21 165/75 H 97 09/24/21 04:33 149/73 H 97 09/24/21 01:19 177/89 H 98 09/24/21 00:17 100 09/24/21 00:10 98 09/24/21 00:00 96 09/23/21 23:50 100 09/23/21 23:40 100 09/23/21 23:31 100 09/23/21 23:30 99 09/23/21 23:20 99 09/23/21 23:15 98 09/23/21 23:10 99 Laboratory Results Abnormal lab results 09/23/21 09/23/21 09/23/21 Range/Units 21:20 21:20 21:22 RDW Std Deviation 47.9 H (36.4-46.3) fL RDW Coeff of [place] 14.8 H (11.5-14.5) % MPV 11.8 H (7.4-10.4) fL Neut # (Auto) 6.54 H (1.4-6.5) K/uL [place] # (Auto) 0.94 H (0.11-0.59) K/uL BUN 26 H (6-23) mg/dl BUN/Creatinine Ratio 23.9 H (10-20) Glucose 146 H (70-99(Fasting)) mg/dl POC Glucose 153 H (70-99) mg/dl Calcium (8.5-10.1) mg/dl 09/24/21 09/24/21 09/24/21 Range/Units 01:08 06:31 07:05 RDW Std Deviation 47.7 H (36.4-46.3) fL RDW Coeff of [place] 14.8 H (11.5-14.5) % MPV 11.8 H (7.4-10.4) fL Neut # (Auto) (1.4-6.5) K/uL [place] # (Auto) 1.00 H (0.11-0.59) K/uL BUN (6-23) mg/dl BUN/Creatinine Ratio (10-20) Glucose (70-99(Fasting)) mg/dl POC Glucose 143 H 169 H (70-99) mg/dl Calcium (8.5-10.1) mg/dl 09/24/21 Range/Units 07:05 RDW Std Deviation (36.4-46.3) fL RDW Coeff of [place] (11.5-14.5) % MPV (7.4-10.4) fL Neut # (Auto) (1.4-6.5) K/uL [place] # (Auto) (0.11-0.59) K/uL BUN 24 H (6-23) mg/dl BUN/Creatinine Ratio 23.8 H (10-20) Glucose 168 H (70-99(Fasting)) mg/dl POC Glucose (70-99) mg/dl Calcium 8.3 L (8.5-10.1) mg/dl Diagnostic Findings : Essentially negative CT angiogram of the neck with contrast. CT- No acute intracerebral pathology. Evidence for old left posterior parietal infarct with encephalomalacia. Cerebral cortical atrophy and remote small vessel disease. (1) Cerebrovascular accident CVA mechanism: unspecified Qualified Code(s): I63.9 - Cerebral infarction, unspecified
--- NOTE | 2021-09-24 15:27 | Hospitalist Progress Note ---
Date of Service September 24, 2021 Assessment & Plan (1) Cerebrovascular accident: Plan: Worsening dysarthria -concerning for acute stroke -per H&P, patient with history of paroxysmal A fib. Will need further investigation. Monitor on telemetry. TTE ordered -will resume antihypertensives with goal of normotension at time of discharge -continue statin, LDL 55 -CTA head/neck no large vessel occlusion or stenosis -CT brain 09/23 showed old left parietal stroke and encephalomalacia. Patient unable to tolerate MRI even with predication. 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 Insulin dependent diabetes -continue basal, bolus regimen -hold metformin -Diabetic diet DVT ppx SQ lovenox Admission and Anticipated Discharge Date Admission Date: September 23, 2021 Subjective Reports that her speech is improved but not completely back to baseline Physical Exam Physical Exam: No acute distress, appears well, speech is difficult to understand Respiratory: breathing comfortably on room air, no wheezing/rhonchi/rales Cardiovascular: regular rate and rhythm, no murmurs/rubs/gallops Gastrointestinal (Abdomen): soft, non tender Musculoskeletal: No edema, no cyanosis Neurologic: +dysarthric, 5/5 strength upper and lower bilaterally with intact gross sensation Results & Data Results & Data ([facility]) Vital Signs (Past 12 Hours) Vital Signs Temp Pulse Pulse Pulse Resp BP BP 09/24/21 15:21 36.6 C 69 20 157/74 H 09/24/21 11:00 36.7 C 72 17 120/72 09/24/21 08:10 36.6 C 78 18 142/72 H 09/24/21 07:21 36.9 C 76 18 165/75 H 09/24/21 04:33 36.5 C 76 18 149/73 H Pulse Ox 09/24/21 15:21 96 09/24/21 11:00 96 09/24/21 08:10 95 09/24/21 07:21 97 09/24/21 04:33 97 Laboratory Results Short CBC 09/23/21 09/24/21 Range/Units 21:20 07:05 WBC 9.41 8.72 (4.8-10.8) K/uL Hgb 14.5 12.8 (12.0-16.0) g/dL Hct 43.8 38.4 (37-47) % Plt Count 201 183 (130-400) K/uL BMP 09/23/21 09/24/21 21:20 07:05 Sodium 138 138 Potassium 4.1 4.1 Chloride 103 107 Carbon Dioxide 28 24 BUN 26 H 24 H Creatinine 1.09 1.01 Glucose 146 H 168 H Calcium 9.8 8.3 L Cardiac Enzymes 09/23/21 Range/Units 21:20 Troponin I < 0.03 (0-0.04) ng/ml Liver Function 09/23/21 Range/Units 21:20 Total Bilirubin 0.7 (0.2-1.0) mg/dl AST 23 (13-39) U/L ALT 24 (7-52) U/L Alkaline Phosphatase 64 (34-104) U/L Albumin 4.1 (3.4-5.0) gm/dl Medications Administered Short CBC 09/23/21 09/24/21 Range/Units 21:20 07:05 WBC 9.41 8.72 (4.8-10.8) K/uL Hgb 14.5 12.8 (12.0-16.0) g/dL Hct 43.8 38.4 (37-47) % Plt Count 201 183 (130-400) K/uL BMP 09/23/21 09/24/21 21:20 07:05 Sodium 138 138 Potassium 4.1 4.1 Chloride 103 107 Carbon Dioxide 28 24 BUN 26 H 24 H Creatinine 1.09 1.01 Glucose 146 H 168 H Calcium 9.8 8.3 L Cardiac Enzymes 09/23/21 Range/Units 21:20 Troponin I < 0.03 (0-0.04) ng/ml Liver Function 09/23/21 Range/Units 21:20 Total Bilirubin 0.7 (0.2-1.0) mg/dl AST 23 (13-39) U/L ALT 24 (7-52) U/L Alkaline Phosphatase 64 (34-104) U/L Albumin 4.1 (3.4-5.0) gm/dl (1) Cerebrovascular accident CVA mechanism: unspecified Qualified Code(s): I63.9 - Cerebral infarction, unspecified
[2021-09-24] MEDS ORDERED: Nursing to Pharmacy Communication SCH (16:15)
--- NOTE | 2021-09-24 16:24 | Electrocardiogram Report ---
Test Reason : Blood Pressure : / mmHG Vent. Rate : 084 BPM Atrial Rate : 084 BPM P-R Int : 240 ms QRS Dur : 074 ms QT Int : 382 ms P-R-T Axes : 052 073 -09 degrees QTc Int : 451 ms Sinus rhythm with 1st degree A-V block Nonspecific T wave abnormality Inferior leads Abnormal ECG No previous ECGs available Confirmed by Ricardo El ([id number]) on 09/24/2021 4:24:19 PM Referred By: REFERRED SELF Confirmed By:Ricardo El
--- NOTE | 2021-09-24 16:58 | CT Scan Report ---
CT head/brain wo con CLINICAL HISTORY: 80 years-old Female with stroke evaluation. Acute strokelike symptoms TECHNIQUE: Multiple axial CT images of the head were obtained without contrast. A dose lowering tech nique was utilized adhering to the principles of ALARA. CT DOSE: 614.27 mGy.cm COMPARISON: CT head, CTA head and neck 09/23/2021 FINDINGS: No acute intracranial hemorrhage, midline shift, intracranial mass, hydrocephalus, or abnormal extra- axial collection. Age-related involutional changes. White matter hypodensities suggest chronic microv ascular ischemic disease. Chronic appearing infarct of the left parietal lobe with encephalomalacia r edemonstrated. There is a large area of decreased attenuation with blurring of aviles-white interface i nvolving the majority of the right cerebellar hemisphere resulting in partial effacement of the fourt h ventricle. The calvarium is intact. Prior bilateral lens repair. The paranasal sinuses, mastoid air cells, and m iddle ear cavities are clear. IMPRESSION: 1. Large area of decreased attenuation with blurring the aviles-white interface is noted involving the majority of the right cerebellar hemisphere. Findings are suggestive of an acute infarct. 2. Chronic left parietal infarct. 3. Age-related involutional changes with chronic microvascular ischemic disease. ACT 112: Negative or not required by law. The above report was generated using voice recognition software. It may contain grammatical, syntax o r spelling errors. Electronically signed by: Alfonso Orona M.D. 09/24/2021 4:57 PM
[2021-09-24] MEDS: PROMETHAZINE HCL 12.5 MG in SODIUM CHLORIDE 0.9% 50 ML IV PRN (23:43)
[2021-09-25] MEDS: SODIUM CHLORIDE 0.9% 1000ML 1,000 ML IV SCH (05:21)
[2021-09-25] MEDS: PROMETHAZINE HCL 12.5 MG in SODIUM CHLORIDE 0.9% 50 ML IV PRN ×2 (06:04→11:34)
[2021-09-25] MEDS ORDERED: METOCLOPRAMIDE HCL INJ 5 MG/ML 2 ML VIAL IV ONE (06:14)
[2021-09-25] MEDS ORDERED: METOPROLOL TARTRATE 1 MG/ML VIAL IV STA (06:15)
[2021-09-25 07:21] LABS: Estimated Average Glucose 151 mg/dl; Hemoglobin A1C 6.9 % (4.5-5.6)
[2021-09-25] MEDS ORDERED: METOCLOPRAMIDE HCL INJ 5 MG/ML 2 ML VIAL IV PRN (08:06)
[2021-09-25] MEDS ORDERED: LABETALOL HCL IV 5 MG/ML 20ML IV PRN (08:06)
[2021-09-25] MEDS ORDERED: LABETALOL HCL IV 5 MG/ML 20ML IV ONE (08:14)
[2021-09-25] MEDS: INSULIN GLARGINE SOLOSTAR 100 UNITS/ML 3 ML PEN SC SCH (08:27)
[2021-09-25] MEDS: ASPIRIN 81 MG ECTAB PO SCH (08:29)
[2021-09-25] MEDS: CLOPIDOGREL BISULFATE 75 MG TAB PO SCH (08:29)
[2021-09-25] MEDS: METOPROLOL TARTRATE 25 MG TAB PO SCH (08:29)
[2021-09-25] MEDS ORDERED: ONDANSETRON INJ 2 MG/ML 2 ML VIAL IV PRN (08:29)
[2021-09-25] MEDS: ATORVASTATIN 40 MG TAB PO SCH (08:29)
[2021-09-25] MEDS: INSULIN ASPART PER UNIT SC SCH (08:30)
[2021-09-25] MEDS: ENOXAPARIN INJ 40 MG/0.4 ML SYR SQ SCH (08:31)
[2021-09-25 08:44] LABS: Basophils # (auto) 0.03 K/uL (0-0.2); Basophils % (auto) 0.3 %; Eosinophils # (auto) 0.05 K/uL (0-0.5); Eosinophils % (auto) 0.5 %; Hematocrit (blood only) 39.2 % (37-47); Hemoglobin 13.2 g/dL (12.0-16.0); Immature Granulocytes # (auto) 0.01 K/uL (0.00-0.02); Immature Granulocytes % (auto) 0.1 %; Lymphocytes # (auto) 1.08 K/uL (1.2-3.4); Lymphocytes % (auto) 10.2 %; Mean Corpuscular Hemoglobin 29.6 pg (25-34); Mean Corpuscular Hgb Conc 33.7 g/dL (32-36); Mean Corpuscular Volume 87.9 fL (80-100); Mean Platelet Volume 12.4 fL (7.4-10.4); Monocytes % (auto) 8.5 %; Neutrophils # (auto) 8.49 K/uL (1.4-6.5); Neutrophils % (auto) 80.4 %; Platelet Count 176 K/uL (130-400); RDW Coefficient of Variation 14.7 % (11.5-14.5); RDW Standard Deviation 47.2 fL (36.4-46.3); Red Blood Count 4.46 M/uL (4.2-5.4); White Blood Count 10.56 K/uL (4.8-10.8)
[2021-09-25 08:57] LABS: Albumin Globulin Ratio 1.6 (0.9-2); Albumin Level 3.7 gm/dl (3.4-5.0); BUN Creatinine Ratio 20.2 (10-20); Bilirubin,Total 0.9 mg/dl (0.2-1.0); Calcium 8.2 mg/dl (8.5-10.1); Creatinine Clr Calc Pharmacy 51.3 ml/min; Est GFR (African American) 66.9 ml/min; Est GFR (Non-African American) 57.7 ml/min; Globulin 2.3 gm/dl (2.5-4.0); Magnesium 1.6 mg/dl (1.7-2.4); Potassium 4.1 mmol/L (3.5-5.1)
[2021-09-25] MEDS ORDERED: LOSARTAN POTASSIUM 50 MG TAB PO SCH ×2 (09:00→21:00)
[2021-09-25] MEDS ORDERED: Nursing to Pharmacy Communication SCH (09:15)
[2021-09-25] MEDS: MAGNESIUM SULFATE / D5W 1 GM/100 ML BAG IV SCH ×2 (10:06→12:24)
--- NOTE | 2021-09-25 10:10 | XRay Report ---
CHEST AND ABDOMEN 2 VIEWS HISTORY: nausea/vomiting COMPARISON: Chest 09/23/2021. FINDINGS: No pneumothorax. No pleural effusions. The cardiac silhouette remains mildly enlarged. No n ew focal lung consolidations identified. There is diffuse interstitial/vascular thickening. This may be chronic or represent mild congestive change. Left basilar linear densities suggesting subsegmental atelectasis. Calcifications within the aortic knob are again noted. There is a right shoulder prosth esis. No dilated loops of bowel to suggest an obstruction. Calcifications within the right deep pelvi s are consistent with phleboliths. No renal or ureteral calculi. IMPRESSION: 1. Cardiomegaly with diffuse interstitial/vascular thickening. This could be chronic or represent mil d congestive change. 2. Unremarkable bowel gas pattern. No evidence for bowel obstruction. ACT 112: Negative or not required by law. Electronically signed by: Kin Peace M.D. 09/25/2021 10:09 AM
--- NOTE | 2021-09-25 10:21 | Cardiology Consultation ---
Date of Consultation September 25, 2021 Assessment & Plan (1) Cerebrovascular accident: (2) PAF (paroxysmal atrial fibrillation): The patient just had a CAT scan this morning. If that study does not show hemorrhage then I agree with the neurology consult the patient can be started on Eliquis and Plavix. The patient is currently in sinus rhythm. History of Present Illness Attending Physician: Kanchan Lynn MD History of Present Illness This is a 80-year-old female admitted with recurrent CVAs. Patient previously in 2020 at a stroke thought to be possibly embolic. She later went on to have a carotid endarterectomy. She was not started on anticoagulation but antiplatelet and cholesterol medications. She does have a history of PAF. The patient has additional symptoms of right aphasia and weakness while playing bingo. Apparently all those symptoms have resolved. Allergies Allergy/AdvReac Type Severity Reaction Status Date / Time No Known Allergies Allergy Unverified 09/23/21 22:41 Home Medications Medication Instructions Recorded Confirmed Type aspirin 81 mg tablet,delayed 81 mg PO DAILY 09/23/21 09/23/21 History release (Aspirin Low Dose) atorvastatin 80 mg tablet 80 mg PO DAILY 09/23/21 09/23/21 History cholecalciferol (vitamin D3) 25 25 mcg PO DAILY 09/23/21 09/23/21 History mcg (1,000 unit) tablet (Vitamin D3) clopidogrel 75 mg tablet 75 mg PO DAILY 09/23/21 09/23/21 History dulaglutide 0.75 mg/0.5 mL 0.75 mg SUBCUT WK 09/23/21 09/23/21 History subcutaneous pen injector (Trulicity) insulin aspart U-100 100 unit/mL 0 unit SUBCUT UD 09/23/21 09/23/21 History (3 mL) subcutaneous pen (Novolog Flexpen U-100 Insulin aspart) losartan 50 mg tablet 50 mg PO DAILY 09/23/21 09/23/21 History metformin 500 mg tablet,extended 500 mg PO DAILY 09/23/21 09/23/21 History release 24 hr metoprolol tartrate 50 mg tablet 50 mg PO BID 09/23/21 09/23/21 History Patient History Medical History CVA (cerebral vascular accident) Diabetes Hyperlipidemia Surgical History History of appendectomy History of cholecystectomy History of left-sided carotid endarterectomy History of right shoulder replacement Social History Smoking Status: Never smoker Hx Alcohol Use: No Hx Substance Use: No Preferred Language: Sinhala Communication Ability: Impaired [employer]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 [employer] Required: No Beliefs That Will Affect Care: Caodaism Current Living Situation: Alone Current Living Situation Comment: own Home Feels Safe at Home: Yes Safety Concerns: Feels Safe At This Time Assistive Devices: None Review of Systems Review of Systems: Not obtainable Physical Exam Physical Exam: General: no acute distress and stated age Head: normocephalic, no masses, lesions, tenderness or abnormalities Eyes: conjunctiva are pink and non-injected, sclera clear Neck: supple, no adenopathy, no bruits, normal jugular venous pulse, no hepatojugular reflux Chest: normal shape and normal respiratory effort Lungs: clear to auscultation and percussion Cardiac Exam: - regular rate & rhythm, no murmurs gallops or rubs - normal S1, normal S2 Pulses: 2(+) throughout Abdomen: abdomen soft, non-tender, no abnormal masses and no hepatosplenomegaly Musculoskeletal: no gait disturbance, no joint inflammation, no deforming arthritis Extremities: no edema and no cyanosis Neuro: grossly normal exam Results & Data ([facility]) Vital Signs (Past 12 Hours) Vital Signs Temp Pulse Pulse Resp BP BP Pulse Ox 09/25/21 07:58 36.5 C 88 18 192/83 H 93 09/25/21 07:01 37.0 C 68 20 189/79 H 97 09/25/21 06:40 85 09/25/21 06:34 80 187/89 H 09/25/21 03:24 36.7 C 77 18 165/78 H 98 09/25/21 00:28 36.7 C 79 18 184/89 H 97 09/24/21 22:18 78 Laboratory Results Laboratory Results - last 24 hr 09/24/21 09/24/21 09/24/21 11:41 17:08 19:48 WBC RBC Hgb Hct MCV MCH MCHC RDW Std Deviation RDW Coeff of [place] Plt Count MPV Immature Gran % (Auto) Neut % (Auto) Lymph % (Auto) [place] % (Auto) Eos % (Auto) Baso % (Auto) Neut # (Auto) Lymph # (Auto) [place] # (Auto) Eos # (Auto) Baso # (Auto) Immature Gran # (Auto) Sodium Potassium Chloride Carbon Dioxide Anion Gap BUN Creatinine Est Cr Clr Drug Dosing Est GFR ( Amer) Est GFR (Non-Af Amer) BUN/Creatinine Ratio Glucose POC Glucose 162 H 169 H 147 H Estimat Average Glucose Hemoglobin A1c Calcium Phosphorus Magnesium Total Bilirubin AST ALT Alkaline Phosphatase Total Protein Albumin Globulin Albumin/Globulin Ratio 09/25/21 09/25/21 09/25/21 06:37 06:37 06:39 WBC 10.56 RBC 4.46 Hgb 13.2 Hct 39.2 MCV 87.9 MCH 29.6 MCHC 33.7 RDW Std Deviation 47.2 H RDW Coeff of [place] 14.7 H Plt Count 176 MPV 12.4 H Immature Gran % (Auto) 0.1 Neut % (Auto) 80.4 Lymph % (Auto) 10.2 [place] % (Auto) 8.5 Eos % (Auto) 0.5 Baso % (Auto) 0.3 Neut # (Auto) 8.49 H Lymph # (Auto) 1.08 L [place] # (Auto) 0.90 H Eos # (Auto) 0.05 Baso # (Auto) 0.03 Immature Gran # (Auto) 0.01 Sodium 137 Potassium 4.1 Chloride 105 Carbon Dioxide 21 Anion Gap 11 BUN 19 Creatinine 0.94 Est Cr Clr Drug Dosing 51.3 Est GFR ( Amer) 66.9 Est GFR (Non-Af Amer) 57.7 BUN/Creatinine Ratio 20.2 H Glucose 195 H POC Glucose Estimat Average Glucose 151 Hemoglobin A1c 6.9 H Calcium 8.2 L Phosphorus 4.0 Magnesium 1.6 L Total Bilirubin 0.9 AST 23 ALT 20 Alkaline Phosphatase 68 Total Protein 6.0 Albumin 3.7 Globulin 2.3 L Albumin/Globulin Ratio 1.6 09/25/21 07:54 WBC RBC Hgb Hct MCV MCH MCHC RDW Std Deviation RDW Coeff of [place] Plt Count MPV Immature Gran % (Auto) Neut % (Auto) Lymph % (Auto) [place] % (Auto) Eos % (Auto) Baso % (Auto) Neut # (Auto) Lymph # (Auto) [place] # (Auto) Eos # (Auto) Baso # (Auto) Immature Gran # (Auto) Sodium Potassium Chloride Carbon Dioxide Anion Gap BUN Creatinine Est Cr Clr Drug Dosing Est GFR ( Amer) Est GFR (Non-Af Amer) BUN/Creatinine Ratio Glucose POC Glucose 191 H Estimat Average Glucose Hemoglobin A1c Calcium Phosphorus Magnesium Total Bilirubin AST ALT Alkaline Phosphatase Total Protein Albumin Globulin Albumin/Globulin Ratio Medications Administered Current Inpatient Medications Acetaminophen (Acetaminophen 325 Mg Tab) 650 mg PO Q4H PRN PRN Reason: Pain or Fever Stop: 10/24/21 01:03 Aspirin (Aspirin 81 Mg Ectab) 81 mg PO DAILY ABHAY Stop: 10/24/21 08:59 Last Admin: 09/25/21 08:29 Dose: Not Given Documented by: Atorvastatin Calcium (Atorvastatin 40 Mg Tab) 80 mg PO DAILY ABHAY Stop: 10/24/21 08:59 Last Admin: 09/25/21 08:29 Dose: Not Given Documented by: Clopidogrel Bisulfate (Clopidogrel Bisulfate 75 Mg Tab) 75 mg PO DAILY ABHAY Stop: 10/24/21 08:59 Last Admin: 09/25/21 08:29 Dose: Not Given Documented by: Dextrose (Dextrose 50% 50 Ml Syringe) 25 - 50 ml IV UD PRN; Protocol PRN Reason: Hypoglycemia Protocol Stop: 10/24/21 01:03 Enoxaparin Sodium (Enoxaparin Inj 40 Mg/0.4 Ml Syr) 40 mg SQ QAM ABHAY Stop: 10/24/21 08:59 Last Admin: 09/25/21 08:31 Dose: Not Given Documented by: Glucagon (Glucagon For Inj 1 Mg Vial) 1 mg SQ UD PRN; Protocol PRN Reason: Hypoglycemia Protocol Stop: 10/24/21 01:03 Glucose (Glucose 10 Tabs/Tube) 4 - 8 tabs PO UD PRN; Protocol PRN Reason: Hypoglycemia Protocol Stop: 10/24/21 01:03 Glucose (Glucose 40% Gel 15 Gm Tube) 15 - 30 gm PO UD PRN; Protocol PRN Reason: Hypoglycemia Protocol Stop: 10/24/21 01:03 Promethazine HCl 12.5 mg/ (Sodium Chloride) 50.5 mls @ 202 mls/hr IV Q6H PRN PRN Reason: Nausea And Vomiting Stop: 10/24/21 01:03 Last Infusion: 09/25/21 06:21 Dose: Infused Documented by: Magnesium Sulfate/Dextrose (Magnesium Sulfate / D5w) 1 gm in 100 mls @ 50 mls/hr IV Q2H [facility] Stop: 09/25/21 13:29 Last Admin: 09/25/21 10:06 Dose: 50 mls/hr Documented by: Insulin Aspart (Insulin Aspart Per Unit) 0 units SC Q6 ABHAY Stop: 10/25/21 11:59 Insulin Glargine (Insulin Glargine Solostar 100 Units/Ml 3 Ml Pen) 5 units SC DAILY [facility] Stop: 10/24/21 08:59 Last Admin: 09/25/21 08:27 Dose: 5 units Documented by: Labetalol HCl (Labetalol Hcl Iv 5 Mg/Ml 20ml) 10 mg IV Q6 PRN; Protocol PRN Reason: for SBP > 180 Stop: 10/25/21 08:05 Lorazepam (Lorazepam 2 Mg/1 Ml Vial) 0.25 mg IV Q1H PRN PRN Reason: for MRI related anxiety Stop: 10/24/21 06:53 Losartan Potassium (Losartan Potassium 50 Mg Tab) 50 mg PO HS [facility] Stop: 10/25/21 20:59 Metoclopramide HCl (Metoclopramide Hcl Inj 5 Mg/Ml 2 Ml Vial) 10 mg IV Q6H PRN PRN Reason: Nausea Stop: 10/25/21 08:05 Metoprolol Tartrate (Metoprolol Tartrate 25 Mg Tab) 25 mg PO BID [facility] Stop: 10/24/21 08:59 Last Admin: 09/25/21 08:29 Dose: Not Given Documented by: Miscellaneous (Carbohydrates For Hypoglycemia ) 15 - 30 gm PO UD PRN PRN Reason: Hypoglycemia Protocol Stop: 10/24/21 01:03 Miscellaneous Information (Pharmacist Discharge Med Rec Consult) 1 ea N/A UD PRN PRN Reason: Consult Stop: 10/24/21 01:03 Ondansetron HCl (Ondansetron Inj 2 Mg/Ml 2 Ml Vial) 4 mg IV Q6H PRN PRN Reason: Nausea And Vomiting Stop: 10/25/21 08:28 (1) Cerebrovascular accident CVA mechanism: unspecified Qualified Code(s): I63.9 - Cerebral infarction, unspecified
[2021-09-25] MEDS ORDERED: hydrALAZINE HCL 20 MG/ML VIAL IV PRN (10:26)
[2021-09-25] MEDS ORDERED: hydrALAZINE HCL 20 MG/ML VIAL ONE (10:33)
--- NOTE | 2021-09-25 11:06 | CT Scan Report ---
HEAD CT NONCONTRAST CT DOSE: 970.54 mGy.cm HISTORY: Evolving right cerebellar stroke follow up TECHNIQUE: Multiaxial CT images of the head were performed without the use of intravenous contrast. A utomated exposure control was utilized for this study. A dose lowering technique was utilized adheri ng to the principles of ALARA. Comparison: Head CT 09/24/2021. Findings: The paranasal sinuses and mastoid air cells are clear. The calvarium and skull base are int act. Atrophy and microvascular ischemic changes are again noted within the brain. Suboptimal evaluati on of the posterior fossa due to motion artifact. There is again noted a large hypodense area within the right cerebellar hemisphere consistent with an evolving infarct. This results in mass effect and partial effacement of the fourth ventricle which is similar to the prior study. No definite evidence for cerebellar tonsillar herniation at this time. Questionable small focus of hemorrhagic transformat ion within the right cerebellar hemisphere on image 3. However, this favors artifact. Old left pariet al infarct again noted. Impression: 1. Evolving large right cerebellar infarct with mass effect and partial effacement of the fourth vent ricle. No hydrocephalus at this time. No definite cerebellar tonsillar herniation. Close follow-up or neurosurgical consultation recommended. 2. Artifact versus a small focus of hemorrhagic transformation at the cerebellar infarct. 3. Old left parietal infarct again noted. 4. This report was called/faxed to the referring physician following dictation ACT 112: Negative or not required by law. Electronically signed by: Kin Peace M.D. 09/25/2021 11:04 AM
[2021-09-25] MEDS ORDERED: INSULIN ASPART PER UNIT SC SCH (12:00)
[2021-09-25] MEDS ORDERED: LORazepam 2 MG/1 ML VIAL IV PRN ×2 (12:04→12:23)
[2021-09-25] MEDS ORDERED: STAT IV Infusion **Titration per Protocol STA (12:59)
[2021-09-25] MEDS ORDERED: niCARdipine 25 MG in SODIUM CHLORIDE 0.9% 240 ML IV SCH (13:00)
[2021-09-25] MEDS ORDERED: SODIUM CHLORIDE 3 % 500 ML IV SCH ×2 (13:00→13:39)
--- NOTE | 2021-09-25 13:00 | Critical Care Progress Note ---
Date of Service September 25, 2021 Assessment & Plan (1) Cerebellar stroke: (2) Intracerebral hemorrhage: (3) Hypertension: Plan: Impression: 80-year-old female with prior history of stroke now with new evolving cerebellar infarct with possible hemorrhagic transformation. She is been accepted at a tertiary facility but is pending transport due to weather issues. Recommendations: 1. Cerebellar stroke: The patient is at risk of developing hydrocephalus. Agree with hypertonic saline. The hospitalist is currently arranging a PICC line for hypertonic saline therapy. We will do every 2 hours sodiums. Initiate hypertonic saline at 20 cc an hour and will try and run sodium between 145 and 150. Should she develop progressive issues, mannitol may be required as well. Unfortunately we do not have neurosurgical intervention available in the event the patient should suffer obstructive hydrocephalus. Try and keep head of bed elevated is much as possible. 2. Hemorrhagic transformation: Hold all anticoagulants for now. If the patient were to suffer complete hemorrhage transformation of her cerebellum, not sure that this would be a survivable insult at our facility. We have no neurosurgical intervention. She may require decompressive craniectomy which in a 80-year-old patient is not without significant risk. Continue to follow clinically. 3. Appreciate neurology assistance. As this is not cortical, do not think that she needs antiepileptics currently but will defer to them. 4. Hypertension: We will try and maintain systolic blood pressure less than 140. Will use Cardene as needed. Patient's overall prognosis is guarded. She is certainly at risk for neurological deterioration and we will try and facilitate transporting her to a higher level of care as soon as is feasible based on whether. The above recommendations and plan were discussed with the patient. Questions were answered to the best of my ability. She is in agreement with the plan as outlined. Total of 40 minutes in critical care time was spent in evaluation management stabilization of this patient. Admission and Anticipated Discharge Date Admission Date: September 23, 2021 Subjective Asked by hospitalist to evaluate this patient with cerebellar infarct and likely small area of hemorrhagic transformation who is been accepted neuro ICU in [facility] but cannot travel due to weather. She is being transferred to the ICU for observation. History is obtained from interview the patient as well as review the electronic medical record. The patient is a 80-year-old female with a history of prior stroke back in January 2021 in [place]. This appeared to be in the left parietal lobe with some petechial hemorrhage. She was noted to have carotid stenosis up to 70% in the left internal carotid artery. She underwent carotid endarterectomy in [place] February 2021. She does have a history of paroxysmal atrial fibrillation. Patient was brought to the emergency room on the evening of September 23 after she was noted to be aphasic. She was significantly hypertensive in the emergency room. Stroke alert was called. tPA was not recommended due to improving symptoms. The patient had neurology consultation performed on the floor and was followed. Follow-up imaging as the patient was unable to tolerate MRI scan demonstrated an evolving cerebellar infarct with possible areas of hemorrhagic transformation. She was evaluated by neurology at [facility] and accepted in transfer to their ICU however due to weather concerns she cannot be transported currently. They recommended transferring her to the ICU for every hour neuro checks, hypertonic saline therapy, and control blood pressure. Patient currently is somewhat dysarthric. She offers no complaints. Blood pressure is slightly high. Review of Systems Review of Systems: Please refer to hospitalist note. No additions or deletions Physical Exam Constitutional: WD/WN, vitals as above Neck: trachea midline, no thyromegaly Respiratory: normal respiratory effort, lungs clear to auscultation Cardiovascular: RRR, no murmur, no edema Gastrointestinal (Abdomen): normal bowel sounds, soft, nontender, no hepatosplenomegaly Musculoskeletal: Extremities: extremities normal to inspection Skin: no rashes, warm and dry Neurologic: Dysarthric. No pronator drift. She is able to move all extremities. Lymphatic: no cervical lymphadenopathy Results & Data Results & Data ([facility]) Vital Signs (Past 12 Hours) Vital Signs Temp Pulse Pulse Resp BP BP BP 09/25/21 12:13 36.4 C L 71 20 147/74 H 09/25/21 10:20 36.2 C L 70 18 186/82 H 09/25/21 07:58 36.5 C 88 18 192/83 H 09/25/21 07:01 37.0 C 68 20 189/79 H 09/25/21 06:40 85 09/25/21 06:34 80 187/89 H 09/25/21 03:24 36.7 C 77 18 165/78 H Pulse Ox 09/25/21 12:13 98 09/25/21 10:20 97 09/25/21 07:58 93 09/25/21 07:01 97 09/25/21 06:40 03/12/22 06:34 09/25/21 03:24 98 Critical Care Results & Data Vital Signs (Past 12 Hours) Vital Signs Temp Pulse Pulse Resp BP BP BP 09/25/21 12:13 36.4 C L 71 20 147/74 H 09/25/21 10:20 36.2 C L 70 18 186/82 H 09/25/21 07:58 36.5 C 88 18 192/83 H 09/25/21 07:01 37.0 C 68 20 189/79 H 09/25/21 06:40 85 09/25/21 06:34 80 187/89 H 09/25/21 03:24 36.7 C 77 18 165/78 H Pulse Ox 09/25/21 12:13 98 09/25/21 10:20 97 09/25/21 07:58 93 09/25/21 07:01 97 09/25/21 06:40 09/25/21 06:34 09/25/21 03:24 98 Lab & Micro Results (Past 24 Hours) RBC 4.46 M/uL (4.2-5.4) 09/25/21 WBC 10.56 K/uL (4.8-10.8) 09/25/21 Hgb 13.2 g/dL (12.0-16.0) 09/25/21 Hct 39.2 % (37-47) 09/25/21 MCV 87.9 fL (80-100) 09/25/21 MCH 29.6 pg (25-34) 09/25/21 MCHC 33.7 g/dL (32-36) 09/25/21 RDW Standard Deviation 47.2 fL (36.4-46.3) H 09/25/21 RDW Coefficient of Variation 14.7 % (11.5-14.5) H 09/25/21 Plt Count 176 K/uL (130-400) 09/25/21 MPV 12.4 fL (7.4-10.4) H 09/25/21 Neutrophils (%) (Auto) 80.4 % 09/25/21 Lymphocytes (%) (Auto) 10.2 % 09/25/21 Monocytes # (Auto) 0.90 K/uL (0.11-0.59) H 09/25/21 Eosinophils # (Auto) 0.05 K/uL (0-0.5) 09/25/21 Immature Granulocyte % (Auto) 0.1 % 09/25/21 Neutrophils # (Auto) 8.49 K/uL (1.4-6.5) H 09/25/21 Lymphocytes # (Auto) 1.08 K/uL (1.2-3.4) L 09/25/21 Monocytes # (Auto) 0.90 K/uL (0.11-0.59) H 09/25/21 Eosinophils # (Auto) 0.05 K/uL (0-0.5) 09/25/21 Basophils # (Auto) 0.03 K/uL (0-0.2) 09/25/21 Immature Granulocyte # (Auto) 0.01 K/uL (0.00-0.02) 09/25/21 Na 137 mmol/L (136-145) 09/25/21 K 4.1 mmol/L (3.5-5.1) 09/25/21 Cl 105 mmol/L (98-107) 09/25/21 CO2 21 mmol/L (21-32) 09/25/21 Anion Gap 11 (3-11) 09/25/21 BUN 19 mg/dl (6-23) 09/25/21 Creatinine 0.94 mg/dl (0.6-1.2) 09/25/21 Estimated GFR ( Amer) 66.9 ml/min 09/25/21 Estimated GFR (Non-Af Amer) 57.7 ml/min 09/25/21 BUN/Creatinine Ratio 20.2 (10-20) H 09/25/21 Glu 195 mg/dl (70-99(Fasting)) H 09/25/21 Ca 8.2 mg/dl (8.5-10.1) L 09/25/21 Phosphorus Level 4.0 mg/dl (2.5-4.9) 09/25/21 Total Bilirubin 0.9 mg/dl (0.2-1.0) 09/25/21 AST 23 U/L (13-39) 09/25/21 ALT 20 U/L (7-52) 09/25/21 Alkaline Phosphatase 68 U/L (34-104) 09/25/21 TP 6.0 gm/dl (6.0-8.3) 09/25/21 Albumin 3.7 gm/dl (3.4-5.0) 09/25/21 Globulin 2.3 gm/dl (2.5-4.0) L 09/25/21 Albumin/Globulin Ratio 1.6 (0.9-2) 09/25/21 Mg 1.6 mg/dl (1.7-2.4) L 09/25/21 06:37 09/25/21 Calcium Level 8.2 mg/dl (8.5-10.1) L 09/25/21 06:37 09/25/21 Diagnostic Findings (Past 24 Hours) Head CT 09/24/21 15:38 CT head/brain wo con CLINICAL HISTORY: 80 years-old Female with stroke evaluation. Acute strokelike symptoms TECHNIQUE: Multiple axial CT images of the head were obtained without contrast. A dose lowering technique was utilized adhering to the principles of ALARA. CT DOSE: 614.27 mGy.cm COMPARISON: CT head, CTA head and neck 09/23/2021 FINDINGS: No acute intracranial hemorrhage, midline shift, intracranial mass, hydrocephalus, or abnormal extra-axial collection. Age-related involutional changes. White matter hypodensities suggest chronic microvascular ischemic disease. Chronic appearing infarct of the left parietal lobe with encephalomalacia redemonstrated. There is a large area of decreased attenuation with blurring of aviles-white interface involving the majority of the right cerebellar hemisphere resulting in partial effacement of the fourth ventricle. The calvarium is intact. Prior bilateral lens repair. The paranasal sinuses, mastoid air cells, and middle ear cavities are clear. IMPRESSION: 1. Large area of decreased attenuation with blurring the aviles-white interface is noted involving the majority of the right cerebellar hemisphere. Findings are suggestive of an acute infarct. 2. Chronic left parietal infarct. 3. Age-related involutional changes with chronic microvascular ischemic disease. ACT 112: Negative or not required by law. The above report was generated using voice recognition software. It may contain grammatical, syntax or spelling errors. Electronically signed by: Alfonso Orona M.D. 09/24/2021 4:[address] 09/25/21 09:[address] DOSE: 970.54 mGy.cm HISTORY: Evolving right cerebellar stroke follow up TECHNIQUE: Multiaxial CT images of the head were performed without the use of intravenous contrast. Automated exposure control was utilized for this study. A dose lowering technique was utilized adhering to the principles of ALARA. Comparison: Head CT 09/24/2021. Findings: The paranasal sinuses and mastoid air cells are clear. The calvarium and skull base are intact. Atrophy and microvascular ischemic changes are again noted within the brain. Suboptimal evaluation of the posterior fossa due to motion artifact. There is again noted a large hypodense area within the right cerebellar hemisphere consistent with an evolving infarct. This results in mass effect and partial effacement of the fourth ventricle which is similar to the prior study. No definite evidence for cerebellar tonsillar herniation at this time. Questionable small focus of hemorrhagic transformation within the right cerebellar hemisphere on image 3. However, this favors artifact. Old left parietal infarct again noted. Impression: 1. Evolving large right cerebellar infarct with mass effect and partial effacement of the fourth ventricle. No hydrocephalus at this time. No definite cerebellar tonsillar herniation. Close follow-up or neurosurgical consultation recommended. 2. Artifact versus a small focus of hemorrhagic transformation at the cerebellar infarct. 3. Old left parietal infarct again noted. 4. This report was called/faxed to the referring physician following dictation ACT 112: Negative or not required by law. Electronically signed by: Kin Peace M.D. 09/25/2021 11:04 AM Chest/Abdomen X-ray 09/25/21 09:06 CHEST AND ABDOMEN 2 VIEWS HISTORY: nausea/vomiting COMPARISON: Chest 09/23/2021. FINDINGS: No pneumothorax. No pleural effusions. The cardiac silhouette remains mildly enlarged. No new focal lung consolidations identified. There is diffuse interstitial/vascular thickening. This may be chronic or represent mild congestive change. Left basilar linear densities suggesting subsegmental atelectasis. Calcifications within the aortic knob are again noted. There is a right shoulder prosthesis. No dilated loops of bowel to suggest an obstruction. Calcifications within the right deep pelvis are consistent with phleboliths. No renal or ureteral calculi. IMPRESSION: 1. Cardiomegaly with diffuse interstitial/vascular thickening. This could be chronic or represent mild congestive change. 2. Unremarkable bowel gas pattern. No evidence for bowel obstruction. ACT 112: Negative or not required by law. Electronically signed by: Kin Peace M.D. 09/25/2021 10:09 AM I & O Totals 24 Hours 09/24/21 09/25/21 09/26/21 06:59 06:59 07:59 Intake Total 234 / 234 1194.333 / 1194.333 150.5 / 150.5 Output Total 400 / 400 Balance 234 / 234 794.333 / 794.333 150.5 / 150.5 Cumulative 09/23/21 20:59 thru 09/25/21 12:06 Intake Total 1578.833 Output Total 400 Balance 1178.833 RT Ventilator Mngmt (Last Documented) Ventilator Ordered Settings Respiratory Rate 20 09/25/21 12:13 Ventilator - PT Measurements Respiratory Rate 20 Coding Level of Care Code Critical Care 1st 30-74 mins Diagnoses Cerebellar stroke I63.9 Intracerebral hemorrhage I61.9 Hypertension I10 Time Spent (min) 45
--- NOTE | 2021-09-25 13:23 | Neurology Progress Note ---
Date of Service September 25, 2021 Assessment & Plan (1) Cerebellar stroke: Plan: A 80 year old womn with history of left MCA ischemic stroke s/p left CEA on ASA and Plavix with residual aphasia, PAF not on anticoagulation, obesity, HTN, and diabetes presenting with worsening aphasia and vision changes on 09/23/21. Stroke alert was called. No IV TPA was given. Admitted for stroke evaluation. No LVO or high grade stenosis seen on CTA head and neck. On examine patient with moderate global aphasia and right upper extremity ataxia. Follow up CT head shows evolving right cerebellar stroke with mass effect on the 4th ventricle with some suggestion of hemorrhagic conversion Vs laminar necrosis. Will hold antiplatelet and anticoagulation. 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 Recommend transfer to Neuro ICU. Will transfer to ICU in the interim with Q1Hr neuro checks. STAT CT head for change in Nuero status. Agree with starting Hypertonic saline with sodium goal of 145-155. (2) PAF (paroxysmal atrial fibrillation): Admission and Anticipated Discharge Date Admission Date: September 23, 2021 Subjective No acute events overnight. Had repeat CT head non contrast this morning due to right cerebellar stroke noted last evening. Blood pressure elevated. Did not restart home losartan. Notified by radiology regarding STAT read. Physical Exam Physical Exam: Appears stated age. Obese female. No acute distress. Oriented. Following some simple commands. Speech non fluent. Some word finding difficulty. Moderate dysarthria. Face symmetric. Ataxia with finger to nose testing on the right. Sensation is intact in the extremities. Hoffmann negative. Eyes midline. EOMI. Results & Data ([facility]) Vital Signs (Past 12 Hours) Vital Signs Temp Pulse Pulse Resp BP BP BP 09/25/21 12:13 36.4 C L 71 20 147/74 H 09/25/21 10:20 36.2 C L 70 18 186/82 H 09/25/21 07:58 36.5 C 88 18 192/83 H 09/25/21 07:01 37.0 C 68 20 189/79 H 09/25/21 06:40 85 09/25/21 06:34 80 187/89 H 09/25/21 03:24 36.7 C 77 18 165/78 H Pulse Ox 09/25/21 12:13 98 09/25/21 10:20 97 09/25/21 07:58 93 09/25/21 07:01 97 09/25/21 06:40 09/25/21 06:34 09/25/21 03:24 98 Laboratory Results NA [address] head non contrast on 09/25/2021: 1. Evolving large right cerebellar infarct with mass effect and partial effacement of the fourth ventricle. No hy drocephalus at this time. No definite cerebellar tonsillar herniation. Close follow-up or neurosurgical consultation recommended. 2. Artifact versus a small focus of hemorrhagic transformation at the cerebellar infarct. 3. Old left parietal infarct again noted. 4. This report was called/faxed to the referring physician following dictation CT head non contrast on 09/24/2021:1. Large area of decreased attenuation with blurring the aviles-white interface is noted involving the majority of the right cerebellar hemisphere. Findings are suggestive of an acute infarct. 2. Chronic left parietal infarct.3. Age-related involutional changes with chronic microvascular ischemic disease.
[2021-09-25 13:30] LABS: BUN Creatinine Ratio 19.8 (10-20); Creatinine Clr Calc Pharmacy 50.2 ml/min; Est GFR (African American) 65.2 ml/min; Est GFR (Non-African American) 56.2 ml/min
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
[2021-09-25] MEDS ORDERED: STROKE PATIENT DISCHARGE STA (16:38)
[2021-09-25 17:03] LABS: BUN Creatinine Ratio 20.4 (10-20); Calcium 9.1 mg/dl (8.5-10.1); Creatinine Clr Calc Pharmacy 49.2 ml/min; Est GFR (African American) 63.6 ml/min; Est GFR (Non-African American) 54.9 ml/min; Potassium 3.8 mmol/L (3.5-5.1)
[2021-09-25] MEDS ORDERED: ICU ELECTROLYTE REPLACEMENT PROTOCOL SCH (18:00)
--- NOTE | 2021-09-25 18:50 | Discharge Summary ---
Date of Service September 25, 2021 Admission HPI Per Admitting Provider History obtained from patient and records. History somewhat limited by patient's aphasia. Medical history significant for CVA, PVD status post surgery, hypertension, PAF, hyperlipidemia, DM insulin requiring. Patient confined at [facility] in [place], [place] January 2021 for altered mental status and aphasia. MRI brain showed acute infarction involving left parietal lobe with regions of petechial hemorrhage and moderate atrophy with chronic microvascular ischemic changes. 50 to 69% stenosis noted on proximal left ICA. Elective left carotid endarterectomy recommended by vascular surgery. Paroxysmal A. fib noted during confinement. Thromboembolic ischemic event highly suspected as per documentation. Patient discharged on dual antiplatelet therapy and Lipitor. Patient eventually underwent left carotid endarterectomy at [facility] February 2021. Patient was playing bingo with her friends few hours ago when she started not feeling well. Patient noted to be aphasic and sounding differently by family. Patient denies headache or weakness symptoms Compliant with home medications. Stroke alert called upon arrival at the ER. TPA not recommended with note of improving symptoms as per conversation between ER provider and [facility] stroke specialist. SBP noted to be 190s at the highest at the ER. IV labetalol administered at the ER. 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 Principal Diagnosis Acute CVA, evolving Hypertensive Urgency Discharge Exam Patient remains dysarthric but awake, alert, 5/5 strength upper and lower extremity with intact gross sensation Discharge Data Allergies Allergy/AdvReac Type Severity Reaction Status Date / Time No Known Allergies Allergy Unverified 09/23/21 22:41 Consultations 09/23/21 22:10 ED Decision to Admit Stat 09/24/21 01:04 Consult Neurology Routine 09/24/21 17:42 Consult Cardiology Routine 09/25/21 14:12 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 Routine Ordered Studies 09/23/21 21:06 CT angio head w con Stat CT angio neck with con Stat CT head/brain wo con Stat 09/24/21 15:38 CT head/brain wo con Routine 09/25/21 09:00 CT head/brain wo con Routine Hospital Course (1) Cerebrovascular accident: Acute right cerebella stroke with evolving changes -hold aspirin, plavix per Neurology -Goal SBP < 140 -Goal Na 145-150 -no need for keppra currently -Accepted to [facility] for closer monitoring and to have neurosurgery on stand -Transfer was delayed due to weather, patient was transferred to our MICU in the interim for Q 1 neuro check, tight blood pressure control and hypertonic saline. -TTE results noted -CTA head/neck no large vessel occlusion Hypertensive Urgency -due to above -goal SBP < 140 -on metoprolol and losartan at home. -received several doses of IV labetalol and Hydralazine with improvement of blood pressure Intractable Nausea/vomitting -due to #2 above, now resolved -improved with PRN zofran, reglan, phenergan -Abdominal X ray normal bowel gas pattern History of PAF -not on anticoagulation previously -will need AC but held currently due to acute CVA and risk for hemorrhage conversion DVT ppx SCD for now Niece updated on care plan. All questions were answered Total Time Total Time Spent Total Time Spent (In Minutes): 60 Discharge Plan Discharge Items Patient Disposition: Transfer Acute Care Hospital Reason For Visit: CVA Discharge Diagnosis: Evolving acute right cerebellar CVA Hypertensive Urgency Intractable nausea/vomiting Condition on Discharge: Serious Activity: As commented below Non-emergency contact: Primary Care Provider and Specialist Call non-emergency contact if: you have any medication questions Follow-up/Referrals: Twila Renteria MD [Primary Care Provider] - Diet: Nothing by Mouth Addtl Attending Provider Instructions: Goal SBP less than 140 Goal Na 145-150 Maintain hypertonic saline (3%) at 20 cc/hr Monitor on telemetry Nicardipine drip to maintain SBP < 140 Pending Studies at Discharge: No Stand-Alone Forms: Medications to Prevent Stroke, My [facility] Skilled Items Patient informed of condition?: Yes DNR: No Discharge Level of Care: Other Communicable Disease: No Discharge Prognosis: Deteriorating Lines: PICC Urinary Catheter: No Medications and DC Order Prescriptions: Continued losartan 50 mg tablet 50 mg PO DAILY RF: 0 atorvastatin 80 mg tablet 80 mg PO DAILY RF: 0 metoprolol tartrate 50 mg tablet 50 mg PO BID RF: 0 cholecalciferol (vitamin D3) [Vitamin D3] 25 mcg (1,000 unit) Tablet 25 mcg PO DAILY RF: 0 Discontinued clopidogrel 75 mg tablet 75 mg PO DAILY RF: 0 metformin 500 mg tablet extended release 24 hr 500 mg PO DAILY RF: 0 Trulicity 0.75 mg/0.5 mL pen injector 0.75 mg SUBCUT WK RF: 0 aspirin [Aspirin Low Dose] 81 mg Tablet,Delayed Release (Dr/Ec) 81 mg PO DAILY RF: 0 insulin aspart U-100 [Novolog Flexpen U-100 Insulin] 100 unit/mL (3 mL) insulin pen 0 unit SUBCUT UD RF: 0 Discharge Orders: Discharge Order (Routine); Ordered 09/25/21 Ordered By: Kanchan Mcpherson/Other Patient Handouts: High Blood Sugar (Hyperglycemia), Hypoglycemia (Low Blood Sugar), Managing Type 2 Diabetes, Diabetes: Meal Planning Admission Data Admit Date/Time: 09/23/21 23:44 Attending Provider: Kanchan Lynn Admit Provider: Ovi Carrillo Primary Care Provider: Twila Renteria Other Providers: [facility] ; Ovi Carrillo ; Keyonna Mirza ; Juan Escobar ; Keyonna Goldman ; Herbert Dominguez ; Lit Bowers ; Chris Austin Other Interventions: Discharge Summary Assessment (RN) Last Done: 09/25/21 16:42
[2021-09-27] MEDS ORDERED: [UNRECOGNIZED DRUG - REMARK] ONE (12:59)
== END 2021-09-25 17:16 | disposition short-term general hospital (02) | DRG 64 ==
LOC: ED 21:09 → 2N 23:44 → 1E 09-25 13:34